=== PATIENT | male | born 1970 | race American Indian/Alaskan Native ===

== ENCOUNTER 2019-12-14 20:12 | Observation (INO) | payer BC ==
[2019-12-14] MEDS ORDERED: ASPIRIN 325 MG TAB PO ONE (20:35)
[2019-12-14 20:57] LABS: Basophils # (Auto) 0.1 K/mm3 (0.0-0.1); Basophils % (Auto) 0.6 % (0.0-1.8); Eosinophils # (Auto) 0.1 K/mm3 (0.0-0.4); Eosinophils % (Auto) 0.9 % (0.0-4.3); Hematocrit 45.8 % (35.5-45.6); Hemoglobin 14.9 gm/dl (11.8-15.2); Lymphocytes # (Auto) 2.4 K/mm3 (1.2-5.4); Lymphocytes % (Auto) 22.9 % (13.4-35.0); Mean Corpuscular HGB Conc 33 % (32-34); Mean Corpuscular Volume 85 fl (84-94); Monocytes # (Auto) 0.8 K/mm3 (0.0-0.8); Monocytes % (Auto) 7.8 % (0.0-7.3); Platelet Count 290 K/mm3 (140-440); Red Blood Count 5.38 M/mm3 (3.65-5.03); Red Cell Distribution Width 14.8 % (13.2-15.2)
[2019-12-14 21:07] LABS: INR 1.03 (0.87-1.13)
[2019-12-14 21:16] LABS: BUN/Creatinine Ratio 12; Blood Urea Nitrogen 11 mg/dL (9-20); Calcium 9.5 mg/dL (8.4-10.2); Hemolysis Index 6
--- NOTE | 2019-12-14 21:30 | Emergency Department Report ---
ED Chest Pain HPI - General Chief Complaint: Chest Pain Stated Complaint: CHEST PAIN/SOB Time Seen by Provider: 12/14/19 20:47 Source: patient Mode of arrival: Ambulatory Limitations: No Limitations - History of Present Illness Initial Comments: This is a 49-year-old male presents to the emergency department with a complaint of generalized chest tightness, shortness of breath and lower extremity swelling. Overall this has been going on intermittently since the end of August. He says that it will last for about a day and then go away. More recently it has been going on for the past 2 to 3 days. The shortness of breath and tightness worsens with exertion and the patient has orthopnea. Patient says that the lower extremity swelling is more apparent in the left leg than the right. Patient just quit smoking cigarettes about 1 month ago. He does not have any past medical history but also does not follow-up with any primary care physician. No recent travel or sick contacts at home. No known alleviating factors. He has not taken anything for his symptoms prior to presentation today. Severity scale (0 -10): 7 - Related Data Allergies Allergy/AdvReac Type Severity Reaction Status Date / Time Penicillins Allergy Hives Verified 12/14/19 20:33 Heart Score - HEART Score History: Slightly suspicious EKG: Non-specific Age: 45-65 Risk factors: 1-2 risk factors Troponin: < normal limit HEART Score: 3 - Critical Actions Critical Actions: 0-3 pts:0.9-1.7%risk of adverse cardiac event.Candidate for discharge ED Review of Systems ROS: Stated complaint: CHEST PAIN/SOB Other details as noted in HPI Comment: All other systems reviewed and negative Constitutional: denies: chills, fever Eyes: denies: eye pain, vision change ENT: denies: ear pain, throat pain Respiratory: orthopnea, shortness of breath, SOB with exertion Cardiovascular: chest pain, edema Gastrointestinal: denies: abdominal pain, vomiting Genitourinary: denies: dysuria, discharge Musculoskeletal: denies: back pain, arthralgia Skin: denies: rash, lesions Neurological: denies: headache, weakness ED Past Medical Hx - Past Medical History Previous Medical History?: Yes Additional medical history: Morbid Obesity - Surgical History Past Surgical History?: No - Social History Smoking Status: Current Every Day Smoker Substance Use Type: None ED Physical Exam - General Limitations: No Limitations - Other Other exam information: GENERAL: The patient is well-developed well-nourished. HENT: Normocephalic. Atraumatic. Patient has moist mucous membranes. EYES: Extraocular motions are intact. NECK: Supple. Trachea is midline. CHEST/LUNGS: Coarse breath sounds. No tachypnea or accessory muscle use. There is no respiratory distress noted. HEART/CARDIOVASCULAR: Regular. There is mild tachycardia. There is no murmur. ABDOMEN: Abdomen is soft, nontender. Patient has normal bowel sounds. Obese habitus. SKIN: 1-2+ pitting edema to the bilateral lower extremities. NEURO: The patient is awake, alert, and oriented. The patient is cooperative. The patient has no focal neurologic deficits. Normal speech. MUSCULOSKELETAL: There is no tenderness or deformity. There is no limitation range of motion. ED Course Vital Signs 12/14/19 12/14/19 12/15/19 20:19 20:55 00:41 Temperature 98.0 F Pulse Rate 121 H 114 H Respiratory 20 18 18 Rate Blood Pressure 181/113 158/96 O2 Sat by Pulse 94 96 95 Oximetry 12/15/19 00:43 Temperature 98.9 F Pulse Rate Respiratory Rate Blood Pressure O2 Sat by Pulse Oximetry JACOB score - Jacob Score Age > 65: (0) No Aspirin use within the Past 7 Days: (0) No 3 or more CAD Risk Factors: (0) No 2 or more Angina events in past 24 hrs: (1) Yes Known CAD with more than 50% Stenosis: (0) No Elevated Cardiac Markers: (0) No ST Deviation Greater than 0.5mm: (0) No JACOB Score: 1 ED Medical Decision Making - Lab Data Result diagrams: 12/14/19 20:39 12/14/19 20:39 - EKG Data -: EKG Interpreted by Ks EKG shows normal: sinus rhythm, axis (Left axis deviation), intervals, QRS complexes (Left anterior fascicular block, Q waves to the septal and anterior leads), ST-T waves Rate: tachycardia (113 bpm) - EKG Data When compared to previous EKG there are: previous EKG unavailable Interpretation: other (Sinus tachycardia at 113 bpm, left axis deviation, normal intervals, left anterior fascicular block, Q waves to the septal and anterior leads) - Radiology Data Radiology results: report reviewed, image reviewed interpreted by me: Chest x-ray shows some cardiomegaly and mild bilateral pleural effusions. There are some pulmonary vascular congestion. DUPLEX DOPPLER LOWER EXTREMITY VEINS, BILATERAL INDICATION / CLINICAL INFORMATION: LE pain and swelling. TECHNIQUE: Duplex doppler imaging was performed through the veins of both lower extremities using venous compression and other maneuvers. COMPARISON: None available. FINDINGS: RIGHT COMMON FEMORAL VEIN: Negative. RIGHT FEMORAL VEIN: Negative. RIGHT POPLITEAL VEIN: Negative. RIGHT CALF VEINS: Negative. LEFT COMMON FEMORAL VEIN: Negative. LEFT FEMORAL VEIN: Negative. LEFT POPLITEAL VEIN: Negative. LEFT CALF VEINS: Negative. ADDITIONAL FINDINGS: None. IMPRESSION: 1. No sonographic evidence for DVT in either lower extremity. CTA of the chest with 3D Reconstruction Indication: ,CP, SOB Technique: TECHNIQUE: Axial CT images were obtained through the chest after injection of 100 cc of Omnipaque 350 IV contrast. 3 plane MIP reconstructions were produced. All CT scans at this location are performed using CT dose reduction for ALARA by means of automated exposure control. COMPARISON: None Automatic exposure control was utilized in an attempt to reduce radiation dose. Findings: Pulmonary arteries: The main pulmonary artery and right and left pulmonary artery branches fill satisfactorily with contrast. No pulmonary embolus is seen. Lungs: There are small bilateral pleural effusions right greater than left. There are patchy airspace opacities in the right upper lobe diffuse groundglass opacity in the lower lobes. The opacities in the upper lobe have a somewhat nodular appearance measuring up to 11 mm. These are subsolid. Mediastinum there mildly prominent mediastinal nodes. There is an 11 mm short axis left periaortic node. There is a 11 mm short axis right paratracheal node. Aorta: Normal in diameter. No dissection seen within limits of this exam. Impression: No pulmonary embolus is seen There are small bilateral pleural effusions right greater than left. There are nodular subsolid opacities in the right upper lobe. This is likely related to pneumonia. There is diffuse groundglass opacity in the lower lobes and in the inferior aspect of the upper lobes as well. This could represent edema or an atypical pneumonia. - Medical Decision Making This patient presents with chest pain and shortness of breath and lower extrem ity swelling. Overall this been going on intermittently since late August but worsened over the past few days. He does have coarse breath sounds but does not appear in any respiratory or acute distress. 1-2+ pitting edema to the bilateral lower extremities. EKG does not have any morphology consistent with ST elevation myocardial infarction. Chest x-ray shows pulmonary vascular congestion, mild cardiomegaly, and basilar pleural effusions. Patient appears to have new onset and/or acute CHF. He has the lower extremity swelling, volume overload on chest x-ray, and a BNP greater than 1600 without any renal insufficiency. He was given some Lasix to start diuresis. Bilateral lower extremity venous Doppler ultrasound was negative for any DVT. He did have an elevated D-dimer level, and therefore a CT angiography of the chest was completed that did not show any pulmonary embolism. It did show bilateral mild pleural effusions, some questionable groundglass nodular densities that could be pneumonia. Patient was also given IV antihypertensive medication. He will be admitted to the hospital for further evaluation and treatment and was accepted for admission by the hospitalist, Dr. Hauser. Critical Care Time: No Critical care attestation.: If time is entered above; I have spent that time in minutes in the direct care of this critically ill patient, excluding procedure time. ED Disposition Clinical Impression: Hypertensive urgency Acute CHF Qualifiers: Heart failure type: unspecified Qualified Code(s): I50.9 - Heart failure, unspecified Obesity Qualifiers: Obesity type: unspecified obesity type Disposition: OP ADMIT IP TO THIS HOSP Is pt being admited?: Yes Condition: Fair Time of Disposition: 23:58
--- NOTE | 2019-12-14 21:32 | XRay Report ---
CHEST 1 VIEW INDICATION: Chest Pain COMPARISON: None FINDINGS: SUPPORT DEVICES: None. HEART / MEDIASTINUM: Cardiac enlargement is noted LUNGS / PLEURA: No significant pulmonary or pleural abnormality. No pneumothorax. ADDITIONAL FINDINGS: IMPRESSION: 1. No acute cardiopulmonary disease Signer Name: Wilbur Cardoza MD Signed: 12/14/2019 9:27 PM Workstation Name: [id number]
[2019-12-14] MEDS ORDERED: FUROSEMIDE 20 MG/2 ML INJ IV ONE (21:49)
[2019-12-14] MEDS ORDERED: ONDANSETRON 4 MG/2 ML INJ IV ONE (22:46)
--- NOTE | 2019-12-14 23:02 | Vascular Lab Report ---
DUPLEX DOPPLER LOWER EXTREMITY VEINS, BILATERAL INDICATION / CLINICAL INFORMATION: LE pain and swelling. TECHNIQUE: Duplex doppler imaging was performed through the veins of both lower extremities using venous miguel sreedhar and other maneuvers. COMPARISON: None available. FINDINGS: RIGHT COMMON FEMORAL VEIN: Negative. RIGHT FEMORAL VEIN: Negative. RIGHT POPLITEAL VEIN: Negative. RIGHT CALF VEINS: Negative. LEFT COMMON FEMORAL VEIN: Negative. LEFT FEMORAL VEIN: Negative. LEFT POPLITEAL VEIN: Negative. LEFT CALF VEINS: Negative. ADDITIONAL FINDINGS: None. IMPRESSION: 1. No sonographic evidence for DVT in either lower extremity. Signer Name: Jamal Mchugh MD Signed: 12/14/2019 10:57 PM Workstation Name: [id number]
--- NOTE | 2019-12-14 23:30 | Cat Scan Report ---
CTA of the chest with 3D Reconstruction Indication: ,CP, SOB Technique: TECHNIQUE: Axial CT images were obtained through the chest after injection of 100 cc of Omnipaque 350 IV contrast. 3 plane MIP reconstructions were produced. All CT scans at this location are performed using CT dose reduction for ALARA by means of automated exposure control. COMPARISON: None Automatic exposure control was utilized in an attempt to reduce radiation dose. Findings: Pulmonary arteries: The main pulmonary artery and right and left pulmonary artery branches fill satis factorily with contrast. No pulmonary embolus is seen. Lungs: There are small bilateral pleural effusions right greater than left. There are patchy airspace opacities in the right upper lobe diffuse groundglass opacity in the lower lobes. The opacities in t he upper lobe have a somewhat nodular appearance measuring up to 11 mm. These are subsolid. Mediastinum there mildly prominent mediastinal nodes. There is an 11 mm short axis left periaortic no de. There is a 11 mm short axis right paratracheal node. Aorta: Normal in diameter. No dissection seen within limits of this exam. Impression: No pulmonary embolus is seen There are small bilateral pleural effusions right greater than left. There are nodular subsolid opacities in the right upper lobe. This is likely related to pneumonia. Th ere is diffuse groundglass opacity in the lower lobes and in the inferior aspect of the upper lobes a s well. This could represent edema or an atypical pneumonia. INCIDENTAL PULMONARY NODULE RECOMMENDATION Recommendation: Subsolid Nodule (Multiple) >=6 mm - CT at 3-6 months. Subsequent management based on the most suspicious nodule(s) Note These recommendations do not apply to lung cancer screening, patients with immunosuppression, o r patients with known primary cancer. Note Newly detected indeterminate nodule in persons 35 years of age or older. Persons under the age of 35 should not receive follow-up unless there is a known primary cancer. Low Risk Patient -- minimal or absent history of smoking and of other known risk factors. High Risk Patient -- history of smoking or of other known risk factors. Nodule dimensions are average of long and short axes, rounded to the nearest millimeter. Based on 2017 Fleischner Society Guidelines found in Radiology 2017 284:228-243. [email or web address] Signer Name: Jamal Mchugh MD Signed: 12/14/2019 11:25 PM Workstation Name: [id number]
[2019-12-15] MEDS ORDERED: ACETAMINOPHEN 325 MG TAB PO PRN (00:02)
[2019-12-15] MEDS ORDERED: ONDANSETRON 4 MG/2 ML INJ IV PRN (00:02)
[2019-12-15] MEDS ORDERED: MAGNESIUM HYDROXIDE (MOM) ORAL LIQD UDC PO PRN (00:02)
[2019-12-15] MEDS ORDERED: DEXTROSE 50% IN WATER (25GM) 50 ML SYRINGE IV PRN (00:02)
[2019-12-15] MEDS ORDERED: hydrALAZINE 20 MG/1 ML INJ IV PRN (00:11)
--- NOTE | 2019-12-15 00:18 | History and Physical Report ---
History of Present Illness Date of examination: 12/15/19 Date of admission: 12/15/2019 Chief complaint: Lower Extremity swelling Shortness of Breath Chest tightness History of present illness: 49-year-old -[place] male with no significant past medical history presenting to the emergency room today complaining of shortness of breath, lower extremity swelling and intermittent chest tightness which has been ongoing intermittently for the past few months. However symptoms have been persistent over the past 2 to 3 days patient indicates that he has been having shortness of breath on minimal exertion, he has also been having orthopnea. He denies any chest pain but has been having intermittent tightness. He has been having lower extremity swelling left greater than the right. He denies any headache or dizziness, no fever or chills, no nausea vomiting, no diarrhea, no abdominal pain, no hematuria or dysuria, denies any sick contacts and no recent travel. He denies any lower extremity pain. He has had occasional cough which is nonproductive. Work-up in the emergency room today reveals elevated BNP, CT angiogram reveals :No pulmonary embolus . There are small bilateral pleural effusions right greater than left. There are nodular subsolid opacities in the right upper lobe. This is likely related to pneumonia. There is diffuse groundglass opacity in the lower lobes and in the inferior aspect of the upper lobes as well. This could represent edema or an atypical pneumonia. Blood pressure was found to be elevated upon arrival in the emergency room. Patient being admitted for new onset CHF. Past History Past Medical History: No medical history Past Surgical History: No surgical history Social history: no significant social history, smoking (Quit tobacco use few weeks ago) Family history: diabetes (In parents), hypertension (In parents) Medications and Allergies Allergies Allergy/AdvReac Type Severity Reaction Status Date / Time Penicillins Allergy Hives Verified 12/14/19 20:33 Active Meds: Active Medications Acetaminophen (Tylenol) 650 mg PO Q4H PRN PRN Reason: Pain MILD(1-3)/Fever >100.5/EMANUEL Dextrose (D50w (25gm) Syringe) 50 ml IV Q30MIN PRN; Protocol PRN Reason: Hypoglycemia Dextrose (D50w (25gm) Syringe) 50 ml IV Q30MIN PRN; Protocol PRN Reason: Hypoglycemia Enoxaparin Sodium (Enoxaparin) 40 mg SUB-Q QDAY@2200 ALFONSO; Protocol Furosemide (Lasix) 40 mg IV BID@0600,1800 ALFONSO Hydralazine HCl (Apresoline) 10 mg IV Q4HR PRN PRN Reason: Blood Pressure Magnesium Hydroxide (Milk Of Magnesia) 30 ml PO Q4H PRN PRN Reason: Constipation Ondansetron HCl (Zofran) 4 mg IV Q8H PRN PRN Reason: Nausea And Vomiting Sodium Chloride (Sodium Chloride Flush Syringe 10 Ml) 10 ml IV BID [facility] Sodium Chloride (Sodium Chloride Flush Syringe 10 Ml) 10 ml IV PRN PRN PRN Reason: LINE FLUSH Review of Systems Constitutional: no fever, no chills Ears, nose, mouth and throat: no nasal congestion, no sore throat Cardiovascular: shortness of breath, dyspnea on exertion, leg edema, no chest pain, no palpitations Respiratory: cough, shortness of breath, no wheezing Gastrointestinal: no abdominal pain, no nausea, no vomiting, no diarrhea Genitourinary Male: no dysuria, no hematuria, no flank pain Musculoskeletal: no neck pain, no low back pain Integumentary: no rash, no pruritis Neurological: no headaches, no confusion Psychiatric: no anxiety, no depression Exam - Constitutional Vitals: Temp Pulse Resp BP Pulse Ox 98.0 F 121 H 18 181/113 96 12/14/19 20:19 12/14/19 20:19 12/14/19 20:55 12/14/19 20:19 12/14/19 20:55 General appearance: Present: no acute distress, well-nourished, obese - EENT Eyes: Present: PERRL, EOM intact. Absent: scleral icterus ENT: hearing intact, clear oral mucosa, dentition normal - Neck Neck: Present: supple, normal ROM - Respiratory Respiratory effort: normal Respiratory: bilateral: diminished - Cardiovascular Rhythm: regular Heart Sounds: Present: S1 & S2. Absent: gallop, systolic murmur, diastolic murmur, rub - Extremities Extremities: no ischemia, pulses intact, pulses symmetrical, Full ROM Extremity abnormal: edema (2+ bilateral lower extremity edema) Peripheral Pulses: within normal limits - Abdominal General gastrointestinal: Present: soft, non-tender, non-distended, normal bowel sounds. Absent: mass - Integumentary Integumentary: Present: clear, warm, dry - Musculoskeletal Musculoskeletal: strength equal bilaterally - Psychiatric Psychiatric: appropriate mood/affect, intact judgment & insight, memory intact, cooperative - Neurologic Neurologic: CNII-XII intact, no focal deficits, moves all extremities HEART Score - HEART Score EKG: Non-specific Age: 45-65 Risk factors: 1-2 risk factors Troponin: Troponin T < 0.010 ng/mL (0.00-0.029) 12/14/19 20:39 Troponin: < normal limit - Critical Actions Critical Actions: 0-3 pts:0.9-1.7%risk of adverse cardiac event.Candidate for discharge Results - Labs CBC & Chem 7: 12/14/19 20:39 12/14/19 20:39 Labs: Abnormal lab results 12/14/19 12/14/19 12/14/19 Range/Units 20:39 20:39 20:45 RBC 5.38 H (3.65-5.03) M/mm3 Hct 45.8 H (35.5-45.6) % [place] % (Auto) 7.8 H (0.0-7.3) % D-Dimer (0-234) ng/mlDDU Sodium 136 L (137-145) mmol/L Carbon Dioxide 20 L (22-30) mmol/L Glucose 217 H (75-100) mg/dL NT-Pro-B Natriuret Pep 1643 H (0-450) pg/mL 12/14/19 Range/Units 21:27 RBC (3.65-5.03) M/mm3 Hct (35.5-45.6) % [place] % (Auto) (0.0-7.3) % D-Dimer 539.31 H (0-234) ng/mlDDU Sodium (137-145) mmol/L Carbon Dioxide (22-30) mmol/L Glucose (75-100) mg/dL NT-Pro-B Natriuret Pep (0-450) pg/mL Assessment and Plan - Patient Problems (1) Acute CHF Current Visit: Yes Status: Acute Qualifiers: Heart failure type: unspecified Qualified Code(s): I50.9 - Heart failure, unspecified Plan to address problem: Patient placed on diuretics. Will monitor input and output and also monitor daily weight. We will schedule patient for echocardiogram. We will request cardiology evaluation. (2) Hypertensive urgency Current Visit: Yes Status: Acute Plan to address problem: We will place patient on antihypertensive medication. Will monitor vital signs closely. (3) Obesity Current Visit: Yes Status: Acute Qualifiers: Obesity type: unspecified obesity type Plan to address problem: We will place dietary consult. Encouraged on weight loss. (4) DVT prophylaxis Current Visit: Yes Status: Acute Plan to address problem: Patient placed on subcutaneous Lovenox. (5) Full code status Current Visit: Yes Status: Acute
[2019-12-15] MEDS: FUROSEMIDE 40 MG/4 ML INJ IV SCH ×2 (05:48→17:50)
[2019-12-15] MEDS: LISINOPRIL 20 MG TAB PO SCH (09:59)
[2019-12-15] MEDS: carvediloL 12.5 MG TAB PO SCH ×2 (09:59→21:40)
--- NOTE | 2019-12-15 11:25 | Consultation ---
History of Present Illness Consult date: 12/15/19 Requesting physician: SARAH ARAMBULA Consult reason: congestive heart failure History of present illness: Pt is a 49 y.o. AA male with no significant past medical hx, previously unknown to our practice, who presented with complaints of intermittent suprasternal chest tightness that has been ongoing since the end of August and has worsened in the past week. Pt also reports SOB/SELLERS and BLE edema (L > R). No orthopnea/PND. Pt denies any additional cardiac complaints. No recent fever/chills. Trop neg x 2. ECG reveals sinus tach, no acute ischemic changes. BNP minimally elevated. CXR reveals no acute findings. D-dimer elevated. BLE Dopplers neg for DVT. Chest CTA neg for PE. Of note, chest CTA reveals small bilateral pleural effusions and diffuse groundglass opacity in the lower lobes + inferior aspect of upper lobes. Pt reports recent neg COVID-19 test. Past History Past Medical History: No medical history Past Surgical History: No surgical history Social history: no significant social history, smoking (quit x 1 month ago). denies: alcohol abuse Family history: diabetes Medications and Allergies Allergies Allergy/AdvReac Type Severity Reaction Status Date / Time Penicillins Allergy Hives Verified 12/14/19 20:33 Active Meds: Active Medications Acetaminophen (Tylenol) 650 mg PO Q4H PRN PRN Reason: Pain MILD(1-3)/Fever >100.5/EMANUEL Carvedilol (Coreg) 12.5 mg PO BID [facility] Last Admin: 12/15/19 09:59 Dose: 12.5 mg Documented by: Dextrose (D50w (25gm) Syringe) 0 ml IV Q30MIN PRN; Protocol PRN Reason: Hypoglycemia Enoxaparin Sodium (Enoxaparin) 40 mg SUB-Q QDAY@2200 ALFONSO; Protocol Furosemide (Lasix) 40 mg IV BID@0600,1800 ALFONSO Last Admin: 12/15/19 05:48 Dose: 40 mg Documented by: Hydralazine HCl (Apresoline) 10 mg IV Q4H PRN PRN Reason: Blood Pressure Last Admin: 12/15/19 02:24 Dose: 10 mg Documented by: Hydralazine HCl (Apresoline) 100 mg PO TID ALFONSO Lisinopril (Zestril) 40 mg PO QDAY [facility] Last Admin: 12/15/19 09:59 Dose: 40 mg Documented by: Magnesium Hydroxide (Milk Of Magnesia) 30 ml PO Q4H PRN PRN Reason: Constipation Ondansetron HCl (Zofran) 4 mg IV Q8H PRN PRN Reason: Nausea And Vomiting Sodium Chloride (Sodium Chloride Flush Syringe 10 Ml) 10 ml IV BID [facility] Last Admin: 12/15/19 10:00 Dose: 10 ml Documented by: Sodium Chloride (Sodium Chloride Flush Syringe 10 Ml) 10 ml IV PRN PRN PRN Reason: LINE FLUSH Review of Systems Constitutional: no fever, no chills, no sweats Ears, nose, mouth and throat: no nasal congestion, no sore throat Cardiovascular: chest pain, edema, shortness of breath, dyspnea on exertion, no orthopnea, no palpitations, no syncope, no lightheadedness, no paroxysmal nocturnal dyspnea, no claudication Respiratory: shortness of breath, dyspnea on exertion, no cough Gastrointestinal: no abdominal pain, no nausea, no vomiting, no diarrhea, no constipation Genitourinary Male: no dysuria, no flank pain Musculoskeletal: no neck stiffness, no neck pain, no myalgias Integumentary: no rash, no wounds Neurological: no head injury, no paralysis, no weakness, no parathesias, no num bness, no tingling, no seizures, no syncope, no vertigo, no headaches Endocrine: no cold intolerance, no heat intolerance, no polydipsia, no polyuria Hematologic/Lymphatic: no easy bruising, no easy bleeding Allergic/Immunologic: no urticaria Physical Examination Last Vital Signs Temp 98.6 F 12/15/19 07:30 Pulse 106 H 12/15/19 09:59 Resp 18 12/15/19 07:30 BP 157/97 12/15/19 09:59 Pulse Ox 96 12/15/19 07:30 General appearance: no acute distress HEENT: Positive: EOMI, Normocephaly, Mucus Membranes Moist Neck: Positive: neck supple, trachea midline. Negative: JVD/HJR Cardiac: Positive: Regular Rhythm, S1/S2, Tachycardia. Negative: Audible Murmur Lungs: Positive: clear to auscultation Neuro: Positive: Grossly Intact Abdomen: Positive: Soft, Active Bowel Sounds. Negative: Tender Skin: Negative: Rash Musculoskeletal: No Pain, Normal Range of Motion Extremities: Present: upper extr. pulses, lower extr. pulses, +1 Edema (BLE (L > R)) Results 12/14/19 20:39 12/14/19 20:39 Coagulation 12/14/19 Range/Units 20:49 PT 13.7 (12.2-14.9) Sec. INR 1.03 (0.87-1.13) CBC 12/14/19 Range/Units 20:39 WBC 10.5 (4.5-11.0) K/mm3 RBC 5.38 H (3.65-5.03) M/mm3 Hgb 14.9 (11.8-15.2) gm/dl Hct 45.8 H (35.5-45.6) % Plt Count 290 (140-440) K/mm3 Lymph # (Auto) 2.4 (1.2-5.4) K/mm3 [place] # (Auto) 0.8 (0.0-0.8) K/mm3 Eos # (Auto) 0.1 (0.0-0.4) K/mm3 Baso # (Auto) 0.1 (0.0-0.1) K/mm3 Comprehensive Metabolic Panel 12/14/19 Range/Units 20:39 Sodium 136 L (137-145) mmol/L Potassium 3.9 (3.6-5.0) mmol/L Chloride 100.8 (98-107) mmol/L Carbon Dioxide 20 L (22-30) mmol/L BUN 11 (9-20) mg/dL Creatinine 0.9 (0.8-1.3) mg/dL Glucose 217 H (75-100) mg/dL Calcium 9.5 (8.4-10.2) mg/dL - Imaging and Cardiology Echo: pending EKG: report reviewed, image reviewed - EKG Interpretation EKG: no acute changes EKG interpretations - Telemetry EKG Rhythm: Sinus Tachycardia - EKG Sinus rhythms and dysrhythmias: sinus tachycardia Assessment and Plan BLE Dopplers neg for DVT. Chest CTA neg for PE. Obtain echo. Continue IV Lasix for now with strict I/Os. Closely monitor renal indices. Continue current antihypertensive regimen - will optimize as needed. Recommend increased ambulation. Pt seen in conjunction with Dr. Galvez, who agrees with the assessment and plan of care. - Patient Problems (1) Atypical chest pain Current Visit: Yes Status: Acute (2) SOB (shortness of breath) Current Visit: Yes Status: Acute (3) Sinus tachycardia Current Visit: Yes Status: Acute (4) Elevated d-dimer Current Visit: Yes Status: Acute (5) HTN (hypertension) Onset Date: ~12/15/19 Current Visit: Yes Status: Acute Qualifiers: Hypertension type: essential hypertension Qualified Code(s): I10 - Essential (primary) hypertension (6) Obesity Current Visit: Yes Status: Chronic Qualifiers: Obesity type: due to excess calories Obesity classification: adult class 3 (BMI >= 40) (7) Tobacco use Current Visit: No Status: Chronic Plan to address problem: quit ~ 1 month ago
--- NOTE | 2019-12-15 11:54 | Event Note ---
Date: 12/15/19 Patient was admitted earlier this morning. Patient was seen and evaluated this morning during my morning rounds, patient said he PLR and his shortness of breath is getting better. Swelling is getting better but still he has significant amount of bilateral leg swelling. Continue management as outlined in H&P. Cardiology is following the patient. Will follow echo.
[2019-12-15] MEDS: hydrALAZINE 100 MG TAB PO SCH ×2 (14:27→21:40)
[2019-12-15] MEDS ORDERED: ENOXAPARIN 40 MG/0.4 ML INJ SUB-Q SCH (22:00)
[2019-12-16 05:35] LABS: Basophils # (Auto) 0.1 K/mm3 (0.0-0.1); Basophils % (Auto) 0.5 % (0.0-1.8); Eosinophils # (Auto) 0.1 K/mm3 (0.0-0.4); Eosinophils % (Auto) 0.7 % (0.0-4.3); Hematocrit 40.6 % (35.5-45.6); Lymphocytes # (Auto) 2.1 K/mm3 (1.2-5.4); Lymphocytes % (Auto) 18.2 % (13.4-35.0); Mean Corpuscular HGB Conc 32 % (32-34); Mean Corpuscular Volume 84 fl (84-94); Monocytes # (Auto) 0.8 K/mm3 (0.0-0.8); Monocytes % (Auto) 7.4 % (0.0-7.3); Platelet Count 281 K/mm3 (140-440); Red Blood Count 4.82 M/mm3 (3.65-5.03); Red Cell Distribution Width 14.7 % (13.2-15.2)
[2019-12-16] MEDS: FUROSEMIDE 40 MG/4 ML INJ IV SCH (05:43)
[2019-12-16 05:48] LABS: INR 1.07 (0.87-1.13)
[2019-12-16 05:53] LABS: BUN/Creatinine Ratio 14; Blood Urea Nitrogen 13 mg/dL (9-20); Calcium 8.9 mg/dL (8.4-10.2); Hemolysis Index 5
[2019-12-16] MEDS: hydrALAZINE 100 MG TAB PO SCH (08:27)
--- NOTE | 2019-12-16 09:26 | Progress Note ---
Assessment and Plan Assessment and plan: (1) Acute CHF Current Visit: Yes Status: Acute Qualifiers: Heart failure type: unspecified Qualified Code(s): I50.9 - Heart failure, unspecified Plan to address problem: Patient is on Lasix 40 mg IV twice daily, with good urine output Shortness of breath is getting better, leg swelling is getting better Echo was not done yet Cardiology consult appreciated (2) Hypertensive urgency Current Visit: Yes Status: Acute Plan to address problem: We will place patient on antihypertensive medication. Will monitor vital signs closely. Blood pressures controlled Diabetes mellitus type 2, new onset -Sliding scale insulin, Lantus 20 units nightly -Accu-Chek, ADA diet, will follow A1c, adjust insulin as needed (3) Obesity Current Visit: Yes Status: Acute Qualifiers: Obesity type: unspecified obesity type Plan to address problem: We will place dietary consult. Encouraged on weight loss. (4) DVT prophylaxis Current Visit: Yes Status: Acute Plan to address problem: Patient placed on subcutaneous Lovenox. (5) Full code status Current Visit: Yes Status: Acute History Interval history: Patient was seen and evaluated this morning Patient's abdominal pain is getting better Hospitalist Physical - Physical exam Narrative exam: Not in cardiopulmonary distress. The patient is morbidly obese. Vital signs as documented. Head exam is unremarkable. No scleral icterus . Neck is without jugular venous distension, thyromegaly, or carotid bruits. Lungs are clear to auscultation. Cardiac exam reveals regular rate and Rhythm. Abdominal exam reveals normal bowel sounds, nontender, no organomegaly. Extremities trace pedal and pretibial edema. 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 No focal weakness. - Constitutional Vitals: Temp Pulse Resp BP Pulse Ox 99.1 F 95 H 17 118/82 89 12/16/19 08:15 12/16/19 03:32 12/16/19 08:15 12/16/19 08:15 12/16/19 03:32 General appearance: Present: no acute distress HEART Score - HEART Score EKG: Non-specific Age: 45-65 Risk factors: 1-2 risk factors Troponin: Troponin T < 0.010 ng/mL (0.00-0.029) 12/15/19 03:53 Troponin: < normal limit - Critical Actions Critical Actions: 0-3 pts:0.9-1.7%risk of adverse cardiac event.Candidate for discharge Results - Labs CBC & Chem 7: 12/16/19 04:52 12/16/19 04:52 Labs: Laboratory Last Values WBC 11.4 K/mm3 (4.5-11.0) H 12/16/19 04:52 RBC 4.82 M/mm3 (3.65-5.03) 12/16/19 04:52 Hgb 13.0 gm/dl (11.8-15.2) 12/16/19 04:52 Hct 40.6 % (35.5-45.6) 12/16/19 04:52 MCV 84 fl (84-94) 12/16/19 04:52 MCH 27 pg (28-32) L 12/16/19 04:52 MCHC 32 % (32-34) 12/16/19 04:52 RDW 14.7 % (13.2-15.2) 12/16/19 04:52 Plt Count 281 K/mm3 (140-440) 12/16/19 04:52 Lymph % (Auto) 18.2 % (13.4-35.0) 12/16/19 04:52 [place] % (Auto) 7.4 % (0.0-7.3) H 12/16/19 04:52 Eos % (Auto) 0.7 % (0.0-4.3) 12/16/19 04:52 Baso % (Auto) 0.5 % (0.0-1.8) 12/16/19 04:52 Lymph # (Auto) 2.1 K/mm3 (1.2-5.4) 12/16/19 04:52 [place] # (Auto) 0.8 K/mm3 (0.0-0.8) 12/16/19 04:52 Eos # (Auto) 0.1 K/mm3 (0.0-0.4) 12/16/19 04:52 Baso # (Auto) 0.1 K/mm3 (0.0-0.1) 12/16/19 04:52 Seg Neutrophils % 73.2 % (40.0-70.0) H 12/16/19 04:52 Seg Neutrophils # 8.4 K/mm3 (1.8-7.7) H 12/16/19 04:52 PT 14.1 Sec. (12.2-14.9) 12/16/19 04:52 INR 1.07 (0.87-1.13) 12/16/19 04:52 D-Dimer 539.31 ng/mlDDU (0-234) H 12/14/19 21:27 Sodium 140 mmol/L (137-145) 12/16/19 04:52 Potassium 4.1 mmol/L (3.6-5.0) 12/16/19 04:52 Chloride 102.5 mmol/L (98-107) 12/16/19 04:52 Carbon Dioxide 25 mmol/L (22-30) 12/16/19 04:52 Anion Gap 17 mmol/L 12/16/19 04:52 BUN 13 mg/dL (9-20) 12/16/19 04:52 Creatinine 0.9 mg/dL (0.8-1.3) 12/16/19 04:52 Estimated GFR > 60 ml/min 12/16/19 04:52 BUN/Creatinine Ratio 14 % 12/16/19 04:52 Glucose 237 mg/dL (75-100) H 12/16/19 04:52 POC Glucose 218 (70-105) H 12/16/19 08:31 Calcium 8.9 mg/dL (8.4-10.2) 12/16/19 04:52 Troponin T < 0.010 ng/mL (0.00-0.029) 12/15/19 03:53 NT-Pro-B Natriuret Pep 1643 pg/mL (0-450) H 12/14/19 20:45 [place]/IV: Voiding Method Toilet IV Catheter Type [Right INT / Saline Lock Antecubital] Active Medications - Current Medications Current Medications: Generic Name Dose Route Start Last Admin Trade Name Freq PRN Reason Stop Dose Admin Acetaminophen 650 mg 12/15/19 00:02 Tylenol PO Q4H PRN Pain MILD(1-3)/Fever >100.5/EMANUEL Carvedilol 12.5 mg 12/15/19 10:00 12/15/19 21:40 Coreg PO 12.5 mg BID ALFONSO Administration Dextrose 0 ml 12/15/19 00:02 D50w (25gm) Syringe IV Q30MIN PRN Hypoglycemia Protocol Enoxaparin Sodium 40 mg 12/15/19 22:00 12/15/19 21:40 Enoxaparin SUB-Q 40 mg QDAY@2200 ALFONSO Administration Protocol Hydralazine HCl 10 mg 12/15/19 00:11 12/15/19 02:24 Apresoline IV 10 mg Q4H PRN Administration Blood Pressure Hydralazine HCl 100 mg 12/15/19 14:00 12/16/19 08:27 Apresoline PO 100 mg TID ALFONSO Administration Insulin Glargine 10 units 12/16/19 10:22 Lantus SUB-Q 12/16/19 10:23 ONCE ONE Insulin Human Lispro 0 unit 12/16/19 11:30 Humalog SUB-Q AC [facility] Protocol Lisinopril 40 mg 12/15/19 10:00 12/15/19 09:59 Zestril PO 40 mg QDAY ALFONSO Administration Magnesium Hydroxide 30 ml 12/15/19 00:02 Milk Of Magnesia PO Q4H PRN Constipation Ondansetron HCl 4 mg 12/15/19 00:02 Zofran IV Q8H PRN Nausea And Vomiting Sodium Chloride 10 ml 12/15/19 10:00 12/15/19 21:44 Sodium Chloride Flush Syringe 10 Ml IV 10 ml BID ALFONSO Administration Sodium Chloride 10 ml 12/15/19 00:02 Sodium Chloride Flush Syringe 10 Ml IV PRN PRN LINE FLUSH Nutrition/Malnutrition Assess - Dietary Evaluation Nutrition/Malnutrition Findings: Nutrition Notes Start: 12/15/19 13:50 Freq: Status: Active Protocol: Document 12/15/19 13:50 VERONICA (Rec: 12/15/19 13:54 VERONICA [email or web address]) Nutrition Notes Need for Assessment generated from: MD Order,Education Initial or Follow up Brief Note Other Pertinent Diagnosis New onset CHF, Hypertensive urgency Current Diet Cardiac/Consistent CHO Labs/Tests POC Glu 200 Pertinent Medications Lasix Weight Status Morbidly Obese Subjective/Other Information RD consulted for diet education. Pt with no PMHx. BP was 181/113 upon admission. He consumed 100% of breakfast this am. Unable to reach pt via phone. Nutrition Intervention Follow-Up By: 12/16/19 Additional Comments F/U: diet education (new onset CHF, low sodium diet)
[2019-12-16] MEDS ORDERED: INSULIN GLARGINE 100 UNITS/ML SUB-Q ONE (10:22)
[2019-12-16] MEDS: LISINOPRIL 20 MG TAB PO SCH (10:25)
[2019-12-16] MEDS: carvediloL 12.5 MG TAB PO SCH (10:26)
[2019-12-16] MEDS ORDERED: carvediloL 12.5 MG TAB PO SCH (10:36)
--- NOTE | 2019-12-16 10:38 | Progress Note ---
Assessment and Plan pt is compensated heart failure and echo is 40-45% and cont lisinopril 40mg and increase coreg 25mg bid and cont hydralzine 100mg bid and cont lasix 20mg and asa and statin and [facility] and followup with dr magana [id number] - Patient Problems (1) Morbid obesity with BMI of 40.0-44.9, adult Current Visit: Yes Status: Acute (2) Acute CHF Current Visit: Yes Status: Acute Qualifiers: Heart failure type: systolic Qualified Code(s): I50.21 - Acute systolic (congestive) heart failure (3) HTN (hypertension) Onset Date: ~12/15/19 Current Visit: Yes Status: Chronic Qualifiers: Hypertension type: essential hypertension Qualified Code(s): I10 - Essential (primary) hypertension (4) Hypertensive urgency Current Visit: Yes Status: Acute (5) SOB (shortness of breath) Current Visit: Yes Status: Resolved (6) Tobacco use Current Visit: No Status: Chronic Subjective Date of service: 12/16/19 Principal diagnosis: chf Interval history: pt swelling and sob has improved and able to ly flat Objective Vital Signs Temp Pulse Resp BP Pulse Ox 12/16/19 08:15 99.1 F 17 118/82 12/16/19 03:32 98.1 F 95 H 18 112/74 89 12/16/19 00:00 80 12/15/19 23:13 99.3 F 100 H 18 124/76 90 12/15/19 22:00 18 98 12/15/19 21:40 103 H 148/84 12/15/19 19:24 98.8 F 103 H 18 148/84 90 12/15/19 16:30 99.7 F H 98 H 18 147/98 92 12/15/19 11:20 98.5 F 106 H 18 153/97 92 - Physical Examination General: No Apparent Distress HEENT: Positive: EOMI, Normocephaly, Mucus Membranes Moist Neck: Positive: neck supple, trachea midline. Negative: JVD/HJR Cardiac: Positive: Reg Rate and Rhythm Lungs: Positive: clear to auscultation Neuro: Positive: Grossly Intact Abdomen: Positive: Soft, Active Bowel Sounds. Negative: Tender Skin: Negative: Rash Musculoskeletal: No Pain, Normal Range of Motion Extremities: Present: upper extr. pulses, lower extr. pulses. Absent: edema - Labs and Meds Coagulation 12/16/19 Range/Units 04:52 PT 14.1 (12.2-14.9) Sec. INR 1.07 (0.87-1.13) CBC 12/16/19 Range/Units 04:52 WBC 11.4 H (4.5-11.0) K/mm3 RBC 4.82 (3.65-5.03) M/mm3 Hgb 13.0 (11.8-15.2) gm/dl Hct 40.6 (35.5-45.6) % Plt Count 281 (140-440) K/mm3 Lymph # (Auto) 2.1 (1.2-5.4) K/mm3 [place] # (Auto) 0.8 (0.0-0.8) K/mm3 Eos # (Auto) 0.1 (0.0-0.4) K/mm3 Baso # (Auto) 0.1 (0.0-0.1) K/mm3 Comprehensive Metabolic Panel 12/16/19 Range/Units 04:52 Sodium 140 (137-145) mmol/L Potassium 4.1 (3.6-5.0) mmol/L Chloride 102.5 (98-107) mmol/L Carbon Dioxide 25 (22-30) mmol/L BUN 13 (9-20) mg/dL Creatinine 0.9 (0.8-1.3) mg/dL Glucose 237 H (75-100) mg/dL Calcium 8.9 (8.4-10.2) mg/dL - Imaging and Cardiology EKG: report reviewed, image reviewed Echo: pending, report reviewed (ef 40-45%) - Telemetry EKG Rhythm: Sinus Rhythm - EKG Sinus rhythms and dysrhythmias: sinus tachycardia
[2019-12-16] MEDS ORDERED: carvediloL 25 MG TAB PO SCH (11:00)
[2019-12-16] MEDS ORDERED: INSULIN LISPRO 100 UNIT/ML VIAL 3 mL SUB-Q SCH (11:30)
--- NOTE | 2019-12-16 11:53 | Discharge Summary ---
Providers - Providers Date of Admission: 12/15/19 00:02 Date of discharge: 12/16/19 Attending physician: ASHISH RAUSCH MD 12/15/19 00:02 Consult to Physician [CONS] Routine Comment: Consulting Provider: TRINA GEORGE Physician Instructions: Reason For Exam: CHF- NEW ONSET 12/15/19 00:03 Consult to Dietitian/Nutrition [CONS] Routine Physician Instructions: Reason For Exam: Reason for Consult: Diet education Primary care physician: DOCTOR OF OPTOMETRY Hospitalization Reason for admission: Acute systolic CHF, new onset diabetes mellitus, morbid obesity Condition: Stable Pertinent studies: Echo EF of 40 to 45% Hospital course: Pt is a 49 y.o. AA male with no significant past medical hx, previously unknown to our practice, who presented with complaints of intermittent suprasternal chest tightness that has been ongoing since the end of August and has worsened in the past week. Pt also reports SOB/SELLERS and BLE edema (L > R). No orthopnea/PND. Pt denies any additional cardiac complaints. No recent fever/chills. Trop neg x 2. ECG reveals sinus tach, no acute ischemic changes. BNP minimally elevated. CXR reveals no acute findings. D-dimer elevated. BLE Dopplers neg for DVT. Chest CTA neg for PE. Of note, chest CTA reveals small bilateral pleural effusions and diffuse groundglass opacity in the lower lobes + inferior aspect of upper lobes. Pt reports recent neg COVID-19 test. Patient was admitted to the floor and was diuresed with IV Lasix and symptoms improved. Cardiology was consulted and did echo and showed ejection fraction of 40 to 45%. Cardiology recommend to discharge the patient with Lasix, carvedilol, ASA, statin and hydralazine for blood pressure control. Patient is newly diagnosed type 2 diabetes mellitus and I put the patient on Metformin and advised to check his blood sugar level and have follow-up with his primary care physician for his medication adjustment. Appropriate medication scripts was given at the time of discharge. Counseled extensively about his disease condition. Patient's questions and concerns were addressed at the bedside. And advised lifestyle modification to lose weight. Disposition: DC- TO HOME OR SELFCARE Time spent for discharge: 32 minutes - Discharge Diagnoses (1) Acute CHF Status: Acute Qualifiers: Heart failure type: systolic Qualified Code(s): I50.21 - Acute systolic (congestive) heart failure (2) Atypical chest pain Status: Acute (3) Elevated d-dimer Status: Acute (4) Hypertensive urgency Status: Acute (5) Morbid obesity with BMI of 40.0-44.9, adult Status: Acute (6) Sinus tachycardia Status: Acute Core Measure Documentation - Palliative Care Palliative Care/ Comfort Measures: Not Applicable - Core Measures Any of the following diagnoses?: heart failure - Heart Failure Discharge Requirements APURVA/ARB for LVSD if EF <40%: Not Applicable Beta michelle at discharge: Yes Exam - Physical Exam Narrative exam: Not in cardiopulmonary distress. The patient is morbidly obese. Vital signs as documented. Head exam is unremarkable. No scleral icterus . Neck is without jugular venous distension, thyromegaly, or carotid bruits. Lungs are clear to auscultation. Cardiac exam reveals regular rate and Rhythm. Abdominal exam reveals normal bowel sounds, nontender, no organomegaly. Extremities trace pedal and pretibial edema. CATERING DRIVER: Alert and oriented 3. No focal weakness. - Constitutional Vitals: Temp Pulse Resp BP Pulse Ox 99.1 F 95 H 17 118/82 89 12/16/19 08:15 12/16/19 03:32 12/16/19 08:15 12/16/19 08:15 12/16/19 03:32 Plan Activity: no restrictions Weight Bearing Status: Full Weight Bearing Diet: low salt, low carbohydrate Follow up with: PRIMARY CAREMD [Primary Care Provider] - 3-5 Days ELVIA WEBSTER MD [Staff Physician] - 12/23/19 LUCILA BONILLA MD [Staff Physician] - 14 Days Prescriptions: AtorvaSTATin [Lipitor] 40 mg PO QHS #30 tab hydrALAZINE [Apresoline TAB] 100 mg PO BID #60 tab Aspirin [Aspirin BABY CHEW TAB] 81 mg PO QDAY #30 tab.chew Diabetic Supplies,Miscell [Cequr Simplicity Concierge] 1 each MC BID #1 miscell carvediloL [Coreg] 25 mg PO BID #60 tablet metFORMIN [Glucophage] 850 mg PO BID #60 tablet Furosemide [Lasix TAB] 20 mg PO QDAY #30 tablet lisinopriL [Zestril TAB] 40 mg PO QDAY #60 tablet
[2019-12-16 12:07] VITALS: BP 145/86
[2019-12-16] MEDS ORDERED: hydrALAZINE 100 MG TAB PO SCH (22:00)
[2019-12-16] MEDS ORDERED: INSULIN GLARGINE 100 UNITS/ML SUB-Q SCH (22:00)
[2019-12-17] MEDS ORDERED: FUROSEMIDE 20 MG TAB PO SCH (10:00)
== END 2019-12-16 14:27 | disposition home or self-care (01) ==
LOC: ED 20:12 → 4A 12-15 00:02
PROVIDERS: ADMIT Internal Medicine Geriatric Medicine; ATTEND Internal Medicine
DX: R07.89 Other chest pain (principal); I11.0 Hypertensive heart disease with heart failure; I50.21 Acute systolic (congestive) heart failure; I16.0 Hypertensive urgency; E11.9 Type 2 diabetes mellitus without complications; R00.0 Tachycardia, unspecified; R79.1 Abnormal coagulation profile; E66.01 Morbid (severe) obesity due to excess calories; F17.200 Nicotine dependence, unspecified, uncomplicated; Z79.899 Other long term (current) drug therapy; Z88.0 Allergy status to penicillin; Z68.41 Body mass index [BMI] 40.0-44.9, adult
CPT/HCPCS: 36415; 71045; 71275; 80048; 82962; 83036; 83880; 84484; 85025; 85379; 85610; 93005; 93306; 93970; 96372; 96374; 96375; 96376; 99285; G0378; J0360; J1650; J1940; J2405; Q9967; J1815

== ENCOUNTER 2020-02-18 06:50 | Day surgery (SDC) | payer BC ==
[2020-02-18] MEDS ORDERED: ASPIRIN EC 325 MG TAB PO ONE (07:22)
[2020-02-18] MEDS ORDERED: SODIUM CHLORIDE 0.9% 500 ML 500 ML IV SCH (08:00)
[2020-02-18] MEDS ORDERED: HEPARIN/NS 5000 UNIT/500ML 1,000 ML IR ONE (08:44)
[2020-02-18] MEDS ORDERED: fentaNYL 100 MCG/2 ML INJ ONE (08:44)
[2020-02-18] MEDS ORDERED: HEPARIN 10,000 UNITS/10 ML VIAL ONE (08:44)
[2020-02-18] MEDS ORDERED: MIDAZOLAM 2 MG/2 ML INJ ONE (08:44)
[2020-02-18] MEDS ORDERED: VERAPAMIL 5 MG/2 ML INJ ONE (08:45)
[2020-02-18] MEDS ORDERED: LIDOCAINE (2%) 20 MG/1 ML VIAL 20 ML MDV INFILTRATI ONE (08:45)
[2020-02-18] MEDS: NITROGLYCERIN SYRINGE 3 ML ONE ×2 (09:21→09:36)
[2020-02-18] MEDS ORDERED: HYDROcodone/ACETAMINOPHEN 5-325 MG TAB PO PRN (10:04)
[2020-02-18] MEDS ORDERED: traMADol 50 MG TAB PO PRN (10:04)
--- NOTE | 2020-02-18 10:08 | Short Stay Summary ---
Short Stay Documentation Date of service: 02/18/20 - History H&P: obtained from office - Allergies and Medications Current Medications: Allergies Penicillins Allergy (Intermediate, Verified 02/18/20 07:23) Vomiting Home Medications Medication Instructions Recorded Confirmed Last Taken Type Aspirin [Aspirin BABY CHEW TAB] 81 mg PO QDAY #30 tab.chew 12/16/19 02/18/20 02/17/20 Rx 81 mg AtorvaSTATin [Lipitor] 40 mg PO QHS #30 tab 12/16/19 02/18/20 02/17/20 Rx 40 mg Furosemide [Lasix TAB] 20 mg PO QDAY #30 tablet 12/16/19 02/18/20 02/17/20 Rx 20 mg carvediloL [Coreg] 25 mg PO BID #60 tablet 12/16/19 02/18/20 02/17/20 Rx 25 mg lisinopriL [Zestril TAB] 40 mg PO QDAY #60 tablet 12/16/19 02/18/20 02/17/20 Rx 40 mg metFORMIN [Glucophage] 850 mg PO BID #60 tablet 12/16/19 02/18/20 02/17/20 Rx 850 mg hydrALAZINE [Apresoline TAB] 50 mg PO BID 02/18/20 02/18/20 02/17/20 History 50 mg Active Medications Sodium Chloride (Nacl 0.9% 500 Ml) 500 mls @ 50 mls/hr IV DIRECT ALFONSO Stop: 02/18/20 17:59 Last Admin: 02/18/20 07:44 Dose: 50 mls/hr Documented by: - Brief post op/procedure progress note Date of procedure: 02/18/20 Pre-op diagnosis: cardiomyopathy Post-op diagnosis: same Procedure: see report Anesthesia: local Estimated blood loss: minimal Pathology: none - Disposition Condition at discharge: Good Disposition: DC-01 TO HOME OR SELFCARE - Discharge Diagnoses (1) Diabetes mellitus Status: Chronic Qualifiers: Diabetes mellitus type: type 2 Diabetes mellitus skilled nursing 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 Diabetes mellitus complication status: without complication Qualified Code(s): E11.9 - Type 2 diabetes mellitus without complications; Z79.4 - group home (current) use of insulin (2) Hyperlipemia, mixed Status: Chronic (3) Cardiomyopathy Status: Chronic Qualifiers: Cardiomyopathy type: dilated Qualified Code(s): I42.0 - Dilated cardiomyopathy (4) Morbid obesity with BMI of 40.0-44.9, adult Status: Chronic (5) HTN (hypertension) Status: Chronic Qualifiers: Hypertension type: essential hypertension Short Stay Discharge Plan Activity: advance as tolerated Diet: low fat, low cholesterol, low salt, diabetic Wound: keep clean and dry Special Instructions: hold Metformin (for two days) Follow up with: PRIMARY CARE, [Primary Care Provider] - 7 Days
--- NOTE | 2020-02-18 10:34 | Cardiac Catherization Report ---
CLINICAL INFORMATION: A 49-year-old patient with diabetes, hypertension, hyperlipidemia, cardiomyopathy with abnormal stress test, here for left heart catheterization. The patient was done with moderate sedation started 9:30 and finished at 9:42, 12 minutes of moderate sedation. Procedure was done via right radial artery, sterile technique, local anesthesia, 6-[place] radial sheath inserted. PROCEDURE FINDINGS: Left system engaged JL3.5 catheter, left main is large and patent, bifurcates into large LAD that is patent wrapped around LAD. Circumflex is a large dominant vessel. Ramus large caliber vessel, patent. OM1, medium caliber vessel. OM2 medium caliber and patent. LPDA medium caliber and patent. RCA is a small nondominant vessel, patent. Diagonal 1 medium caliber vessel, patent. RCA small, nondominant vessel engaged with JR4 catheter. LV gram done in [place] shows normal LV function, EF 50%. LVEDP 3 mmHg, LV is 134. Aortic is 134/65. No gradient across the aortic valve on pullback. 5-[place] catheters all taken over guidewire, 6-[place] radial sheath was discontinued. Radial band applied. No hematoma, no bleeding. SUMMARY: Left main patent, LAD patent, diagonal patent, circumflex large, dominant, patent, OM1, OM2 patent. LPDA patent. RCA small, nondominant, and patent. Borderline LV function, EF 50%, nonischemic cardiomyopathy. Continue risk factor modification. Discussed in detail with the patient and the patient's family. [facility]# [id number] INDIRA/BRIAN QUINTEROS
[2020-02-18 12:56] VITALS: BP 153/83
== END 2020-02-18 13:37 | disposition home or self-care (01) ==
LOC: CATHLABREC 06:50
PROVIDERS: ATTEND Internal Medicine
DX: I42.0 Dilated cardiomyopathy (principal); R94.31 Abnormal electrocardiogram [ECG] [EKG]; E11.65 Type 2 diabetes mellitus with hyperglycemia; I11.0 Hypertensive heart disease with heart failure; I50.23 Acute on chronic systolic (congestive) heart failure; E78.2 Mixed hyperlipidemia; E66.01 Morbid (severe) obesity due to excess calories; Z88.0 Allergy status to penicillin; Z79.84 Long term (current) use of oral hypoglycemic drugs; Z79.82 Long term (current) use of aspirin; Z87.891 Personal history of nicotine dependence; Z68.44 Body mass index [BMI] 60.0-69.9, adult; Z83.3 Family history of diabetes mellitus; Z98.890 Other specified postprocedural states
CPT/HCPCS: 82962; 93005; 93458; 99156; C1894; J1644; J2250; J3010; J7040; Q9967